=== PATIENT | female | born 1970 | race Caucasian/White ===

== ENCOUNTER 2017-03-09 15:44 | Emergency (ER) | payer BC ==
[~2017-03-09] VITALS: Ht 167.6 cm; Wt 108.9 kg
[~2017-03-09 15:44] MED LIST: BISOPROLOL FUMAR5 MG PO; COQ-10100 MG PO; GLIPIZIDE10 MG PO; GLIPIZIDE5 MG PO; HYDROCHLOROTHIA25 MG PO; INSULIN PUMP MC; LASIX20 MG PO; LEVEMIR FL100 UNITS/ SC; LISINOPRIL10 MG PO; LO-DOSE ASPIRIN81 M1 PO; METFORMIN HCL1000 MG PO; PRAVASTATIN SOD20 MG PO; PROTONIX40 MG PO
[2017-03-09 18:21] LABS: HEMATOCRIT 38.1 % (36.0-46.0); MCH 28.7 PG (29.0-34.0); MCHC 33.1 G/DL (30.0-36.0); MCV 86.8 FL (83-99); MEAN PLAT.VOLUME 10.3 uM^3 (9.5-12.4); PLATELET COUNT 201 K/uL (156-360); RBC DIS.WIDTH-CV 13.8 % (11.8-14.6); RED BLOOD COUNT 4.39 M/uL (3.80-5.20); WHITE BLOOD COUNT 8.5 K/uL (4.1-10.2)
[2017-03-09 18:30] LABS: CHLORIDE 101 mEq/L (99-109); POTASSIUM 3.9 mEq/L (3.7-5.4); SODIUM 139 mEq/L (136-147)
[2017-03-09 18:31] LABS: GLUCOSE 96 mg/dL (70-99)
[2017-03-09 18:33] LABS: ANION GAP 10 MEQ/L (2-14)
[2017-03-09 18:35] LABS: GFR ESTIMATE (CALCULATED) > 59 mL/min/
[2017-03-09 18:36] LABS: UREA NITROGEN (BUN) 14 mg/dL (9-23)
[2017-03-09] MEDS ORDERED: LASIX20 MG PO (18:36)
[2017-03-09] MEDS ORDERED: ALDACTONE50 MG PO (18:38)
[2017-03-09] MEDS ORDERED: KLOR-CON M1010 MEQ PO (18:39)
[2017-03-09] MEDS ORDERED: SYMBICORT60 INHALAT IH (18:39)
[2017-03-09] MEDS ORDERED: INCRUSE ELLI62.5 MCG IH (18:39)
[2017-03-09] MEDS ORDERED: GLUCAGON1 MG IM (18:40)
[2017-03-09] MEDS ORDERED: TRULICITY1.5 MG/0.5 SC (18:40)
[2017-03-09] MEDS ORDERED: PROAIR RESPICL90 MCG IH (18:40)
[2017-03-09 18:42] LABS: TROP-I INTERPRETATION NEGATIVE; TROPONIN-I < 0.01 ng/mL (0.0-0.30)
[2017-03-09] MEDS ORDERED: MACROBID100 MG PO (18:44)
[2017-03-09] MEDS ORDERED: LEVAQUIN750 MG PO (19:29)
[2017-03-09 20:31] VITALS: BP 113/67
== END 2017-03-09 20:32 | disposition home or self-care (01) ==
LOC: EME 15:44
PROVIDERS: Emergency Medicine
DX: J44.0 Chronic obstructive pulmonary disease with (acute) lower respiratory infection (principal); J18.9 Pneumonia, unspecified organism; R07.9 Chest pain, unspecified; I10 Essential (primary) hypertension; E78.5 Hyperlipidemia, unspecified; E11.9 Type 2 diabetes mellitus without complications; Z79.4 Long term (current) use of insulin; Z79.84 Long term (current) use of oral hypoglycemic drugs; Z79.82 Long term (current) use of aspirin
CPT/HCPCS: 71020; 80048; 83880; 84484; 85027; 85379; 93005; 94640; 99281; 99285; J1956